=== PATIENT | male | born 1975 | race Caucasian/White ===

== ENCOUNTER 2018-06-17 09:45 | Emergency (ER) | payer BC ==
[2018-06-17 10:18] VITALS: BP 148/90
--- NOTE | 2018-06-17 11:57 | XRAY Report ---
Reason: left shoulder pain Procedure Date: 06/17/2018 Accession Number: [id number] / [id number] Procedure: XR - Shoulder 3 View LT CPT Code: FULL RESULT: EXAM: LEFT SHOULDER RADIOGRAPHY EXAM DATE: 06/17/2018 11:46 AM. CLINICAL HISTORY: Left shoulder pain. COMPARISON: None. TECHNIQUE: 3 views. FINDINGS: Bones: No fracture or bone lesion. Joints: The glenohumeral and acromioclavicular joints are anatomically aligned. Soft tissues: The included hemithorax is unremarkable. No soft tissue calcification. IMPRESSION: Normal left shoulder radiography. [facility]
--- NOTE | 2018-06-17 13:37 | ED Physician Documentation ---
History of Present Illness - Stated complaint Stated Complaint: LEFT SHOULDER PX - Chief complaint Chief Complaint: Ext Problem - Additonal information Additional information: hx from pt 43 male L shoulder pain for several month started after repetitive ribbing motion has bony lump to top of shoulder and pain with ABDuction Review of Systems Constitutional: denies: Fever Cardiac: denies: Chest pain / pressure Respiratory: denies: Dyspnea GI: denies: Abdominal Pain Musculoskeletal: reports: Joint pain, Joint swelling PD PAST MEDICAL HISTORY - Past Medical History Past Medical History: No Cardiovascular: None Respiratory: Asthma Neuro: None Endocrine/Autoimmune: None GI: None : None HEENT: None Psych: None Musculoskeletal: None Derm: None - Past Surgical History Past Surgical History: No - Present Medications Home Medications: Ambulatory Orders Medication Instructions Recorded Confirmed Albuterol Sulfate [Proventil Hfa 06/17/18 Inhaler] Cyclobenzaprine [Flexeril] 10 mg PO TID PRN #20 tablet 06/17/18 Fluticasone/Salmeterol [Advair 06/17/18 100-50 Diskus] Ibuprofen [Motrin] 400 mg PO Q6H PRN #30 tablet 06/17/18 - Allergies Allergies/Adverse Reactions: Allergies Allergy/AdvReac Type Severity Reaction Status Date / Time No Known Drug Allergies Allergy Verified 06/17/18 12:08 - Social History Does the pt smoke?: No Smoking Status: Never smoker Does the pt drink ETOH?: Yes Does the pt have substance abuse?: No - Immunizations Immunizations are current?: No - POLST Patient has POLST: No PD ED PE NORMAL - Vitals Vital signs reviewed: Yes - Cardiac Cardiac: RRR - Respiratory Respiratory: No respiratory distress - Abdomen Abdomen: Soft, Non tender - Extremities Extremities: Other (L shoulder prom bony protuberance superior and pain with resisted ABD, MSV intact) Results - Vitals Vitals: Vital Signs - 24 hr 06/17/18 10:13 Temperature 36.7 C Heart Rate 71 Respiratory 16 Rate Blood Pressure 148/90 H O2 Saturation 100 Oxygen O2 Source Room air Departure - Departure Disposition: 01 Home, Self Care Clinical Impression: Rotator cuff (capsule) sprain Qualifiers: Encounter type: initial encounter Laterality: left Qualified Code(s): S43.422A - Sprain of left rotator cuff capsule, initial encounter Condition: Good Instructions: Rotator Cuff Injury Prescriptions: Cyclobenzaprine [Flexeril] 10 mg PO TID PRN #20 tablet PRN Reason: Spasms Ibuprofen [Motrin] 400 mg PO Q6H PRN #30 tablet PRN Reason: Pain Comments: The xrays are fine - it looks like the bony bump is a prominent distal clavicle. The pain you are suffering is typical of a rotator cuff strain Recommend motrin for pain and inflammation and flexeril to help relax the muscles Ice for 20 minutes at a time Try to minimize the work you do with that arm And follow up with your PMD to request a referral to physical therapy - or call your insurnace to see which PT you can see without a referral
== END 2018-06-17 13:49 | disposition home or self-care (01) ==
LOC: ED 09:45
DX: S43.422A Sprain of left rotator cuff capsule, initial encounter (principal); X58.XXXA Exposure to other specified factors, initial encounter
CPT/HCPCS: 99283

== ENCOUNTER 2019-03-09 13:00 | Emergency (ER) | payer SELFPAY ==
[2019-03-09 13:11] VITALS: BP 133/79
--- NOTE | 2019-03-09 13:17 | ED Physician Documentation ---
PD HPI LOWER EXT INJURY - Stated complaint Stated Complaint: L LEG LAC - Chief complaint Chief Complaint: Laceration - History obtained from History obtained from: Patient, Family - History of Present Illness PD HPI LOW EXT INJURY LOCATION: Left, Lower leg Type of injury: Laceration Where injury occurred: Home Timing - onset: Today Timing - duration: Minutes Timing - details: Abrupt onset, Still present Improved by: Rest, Immobilization Worsened by: Moving, Palpating Associated symptoms: No: Weakness, Numbness, Tingling, Swelling, Discolored Similar symptoms before: Diagnosis (laceration) Recently seen: Not recently seen - Additional information Additional information: 44-year-old male was using a machete to cut physical bushes when he missed with the machete and struck the anterior part of his left calf below the knee. He is able to flex and extend his knee without difficulty and is able walk without difficulty he has a laceration. He did clean it out well at home. Review of Systems Constitutional: denies: Fever Eyes: denies: Decreased vision Ears: denies: Ear pain Nose: denies: Congestion Respiratory: denies: Cough GI: denies: Vomiting Skin: reports: Laceration (s) Musculoskeletal: reports: Extremity pain. denies: Neck pain, Back pain PD PAST MEDICAL HISTORY - Past Medical History Past Medical History: Yes Cardiovascular: None Respiratory: Asthma Neuro: None Endocrine/Autoimmune: None GI: None : None HEENT: None Psych: None Musculoskeletal: None Derm: None - Past Surgical History Past Surgical History: No - Present Medications Home Medications: Ambulatory Orders Medication Instructions Recorded Confirmed Albuterol Sulfate [Proventil Hfa 06/17/18 Inhaler] Cyclobenzaprine [Flexeril] 10 mg PO TID PRN #20 tablet 06/17/18 Fluticasone/Salmeterol [Advair 06/17/18 100-50 Diskus] Ibuprofen [Motrin] 400 mg PO Q6H PRN #30 tablet 06/17/18 - Allergies Allergies/Adverse Reactions: Allergies Allergy/AdvReac Type Severity Reaction Status Date / Time No Known Drug Allergies Allergy Verified 06/17/18 12:08 - Social History Does the pt smoke?: No Smoking Status: Never smoker Does the pt drink ETOH?: Yes Does the pt have substance abuse?: No - Immunizations Immunizations are current?: Yes - POLST Patient has POLST: No PD ED PE NORMAL - Vitals Vital signs reviewed: Yes (hypertensive mild ) - General General: Alert and oriented X 3, No acute distress, Well developed/nourished - HEENT HEENT: Atraumatic, PERRL, EOMI - Respiratory Respiratory: No respiratory distress - Derm Derm: Normal color, Warm and dry, No rash - Extremities Extremities: No deformity, No edema, Other (over the left anterior calf there is a 3cm laceration about 5cm below the patella. There is involvement of the tendon sheeth but not deeper. There is not fb and the distal n/v is intact ) - Neuro Neuro: Alert and oriented X 3, shear scrapman 2-12 intact, No motor deficit, No sensory deficit, Normal speech Eye Opening: Spontaneous Motor: Obeys Commands Verbal: Oriented GCS Score: 15 - Psych Psych: Normal mood, Normal affect Results - Vitals Vitals: Vital Signs - 24 hr 03/09/19 13:06 Temperature 37 C Heart Rate 56 L Respiratory 18 Rate Blood Pressure 133/79 H O2 Saturation 97 Oxygen O2 Source Room air Procedures - Laceration (location) left knee Length in cm: 3 Wound type: Linear, Irregular, Clean Neurovascular status: Sensory intact, Motor intact, Vascular intact Tendon involvement: Tendon intact Anesthesia: Lidocaine 1%, With bicarb Wound Preparation: Hibiclens, Irrigated copiously NS, Wound explored, To the base Skin layer closure: Nylon, Interrupted, Size #-0 - enter number (4-0) Other: Patient tolerated well, No complications, Neurovascular intact, Dressing applied, Tetanus booster given Complexity: Simple PD MEDICAL DECISION MAKING - ED course Complexity details: considered differential, d/w patient, d/w family ED course: 44-year-old male with an anterior left calf laceration has sutures placed he is given a tetanus booster and he will need to have sutures removed in 10 days. Departure - Departure Disposition: 01 Home, Self Care Clinical Impression: Laceration of calf Qualifiers: Encounter type: initial encounter Laterality: left Qualified Code(s): S81.812A - Laceration without foreign body, left lower leg, initial encounter Condition: Stable Instructions: ED Laceration All Follow-Up: [facility] [Provider Group] [facility] [Provider Group] Comments: suture will need to be removed in 10 days
[2019-03-09] MEDS ORDERED: BUFFERED LIDOCAINE 10 ML SYRINGE SUBQ STA (13:25)
[2019-03-09] MEDS ORDERED: TETANUS/DIPHTHERIA/PERTUSSIS 0.5 ML SYRINGE IM ONE (13:45)
== END 2019-03-09 14:08 | disposition home or self-care (01) ==
LOC: ED 13:00
DX: S81.812A Laceration without foreign body, left lower leg, initial encounter (principal); W27.8XXA Contact with other nonpowered hand tool, initial encounter; Y93.H2 Activity, gardening and landscaping; Y92.007 Garden or yard of unspecified non-institutional (private) residence as the place of occurrence of the external cause; Z23 Encounter for immunization
CPT/HCPCS: 12002; 90471